=== PATIENT | male | born 1955 | race Caucasian/White ===

== ENCOUNTER 2024-04-06 09:05 | Day surgery (SDC) | payer MEDICARE, MEDICAID ==
[2024-04-06] VITALS (8 sets, daily range): BP systolic 110–153; BP diastolic 52–81; PULSE 43–62; RESP 12–20; TEMP 98.3; O2SAT 95–97
[~2024-04-06] VITALS: Ht 185.4 cm; Wt 89.1 kg
[2024-04-06] MEDS ORDERED: MULT-1085 PO (09:36)
[2024-04-06] MEDS ORDERED: LIONS MANE MUSHROOM PO (09:36)
[2024-04-06] MEDS ORDERED: CHOL100046 PO (09:36)
[2024-04-06] MEDS ORDERED: LATA2.5D14 EACHEYE (09:36)
[2024-04-06] MEDS ORDERED: ACYC-126 PO (09:36)
[2024-04-06] MEDS ORDERED: BICT1TAB PO (09:36)
[2024-04-06] MEDS ORDERED: BRIM10DR3 RIGHTEYE (09:36)
[2024-04-06 10:08] LABS: BASOPHILS % (AUTO) 0.4 % (0-1); EOSINOPHILS % (AUTO) 0.4 % (0-6); HEMATOCRIT 49.8 % (42.0-52.0); HEMOGLOBIN 16.8 g/dl (14.0-17.9); LYMPHOCYTES # (AUTO) 2.8 X10'3 (1.1-4.8); LYMPHOCYTES % (AUTO) 38.3 % (21-51); MEAN CORPUSCULAR HEMOGLOBIN 35.1 PG (27.0-31.0); MEAN CORPUSCULAR HGB CONC 33.7 g/dL (33.0-36.5); MEAN CORPUSCULAR VOLUME 104.3 FL (78-98); MEAN PLATELET VOLUME 7.7 FL (7.4-10.4); MONOCYTES # (AUTO) 0.6 X10'3 (0-0.9); MONOCYTES % (AUTO) 8.1 % (2-12); NEUTROPHILS # (AUTO) 3.9 X10'3 (1.8-7.7); NEUTROPHILS % (AUTO) 52.8 % (42-75); PLATELET COUNT 246 X10'3 (140-440); RED BLOOD COUNT 4.77 X10'6 (4.70-6.10); RED CELL DISTRIBUTION WIDTH 12.9 % (11.5-14.5); WHITE BLOOD COUNT 7.4 X10'3 (4.5-11.0)
[2024-04-06] MEDS: LORazepam 0.5 MG tablet PO PRN (10:30)
[2024-04-06] MEDS: diphenhydrAMINE 25mg capsule PO PRN (10:30)
[2024-04-06 10:31] LABS: APTT 26 SECONDS (22-32); PROTHROMBIN TIME 10.6 SECONDS (9.0-12.0)
[2024-04-06] MEDS: LIDOcaine 1% (10mg/ml) 2ml vial ONE (10:31)
[2024-04-06] MEDS: normal saline 1,000 ML IV SCH (10:31)
[2024-04-06 10:33] LABS: ALBUMIN 4.7 G/DL (3.4-5.0); ANION GAP 10 (8-16); BLOOD UREA NITROGEN 16 MG/DL (7-18); BUN/CREATININE RATIO 12.3 (10.0-20.0); CALCIUM 9.7 MG/DL (8.5-10.1); CHLORIDE 102 MMOL/L (99-107); CHOL/HDL RATIO 4.2 (0.00-4.99); CHOLESTEROL 222 MG/DL (0-200); GLUCOSE 111 MG/DL (70-104); HDL CHOLESTEROL 53 MG/DL (35-60); LDL CHOLESTEROL 148 MG/DL (50-100); SODIUM 137 MMOL/L (135-145); TOTAL CARBON DIOXIDE 25.5 MMOL/L (24-32); TRIGLYCERIDES 104 MG/DL (20-135); eCRCL 63 ML/MIN; eGFR 55 ML/MIN
[2024-04-06] MEDS ORDERED: midazolam 1 mg/ML 2ml injection ONE ×2 (11:34→12:45)
[2024-04-06] MEDS ORDERED: verapamil 2.5 mg/ml inj IV ONE (11:34)
[2024-04-06] MEDS ORDERED: LIDOcaine 1% (10mg/ml) 2ml vial ONE (11:34)
[2024-04-06] MEDS ORDERED: heparin 1,000unit/ml 10ml vial 10 ML ONE (11:35)
[2024-04-06] MEDS ORDERED: iohexol 350MG/ML 100ml bottle IV ONE (11:35)
[2024-04-06] MEDS ORDERED: fentaNYL/PF 50MCG/1 ML 2ML syringe ONE (11:35)
[2024-04-06] MEDS ORDERED: nitroGLYCERIN 500mcg/5mL D5W 5 ML IV ONE (11:39)
[2024-04-06] MEDS ORDERED: HYDROcodone/acetaminophen 10/325mg tab PO PRN (13:50)
[2024-04-06] MEDS ORDERED: HYDROcodone/acetaminophen 5mg/325mg tablet PO PRN (13:50)
[2024-04-07 06:12] LABS: ISTAT HGB MIX 13.9 g/dl (14.0-17.9); ISTAT Hct MIX 41 %PCV (42-52); ISTAT O2 SATURATION MIX VENOUS 69 % (60-80); ISTAT SOURCE BLNK
[2024-04-07 06:13] LABS: ISTAT HGB ART 13.6 g/dl (14.0-17.9); ISTAT Hct ART 40 %PCV (42-52); ISTAT O2 SATURATION ARTERIAL 95 % (95-98); ISTAT SOURCE BLNK
== END 2024-04-06 15:30 | disposition home or self-care (01) ==
LOC: SSTAY O 09:05
PROVIDERS: ATTEND Student in an Organized Health Care Education/Training Program
DX: I35.0 Nonrheumatic aortic (valve) stenosis (principal); I25.10 Atherosclerotic heart disease of native coronary artery without angina pectoris; I10 Essential (primary) hypertension; E78.5 Hyperlipidemia, unspecified; B20 Human immunodeficiency virus [HIV] disease; Z85.048 Personal history of other malignant neoplasm of rectum, rectosigmoid junction, and anus; Z79.899 Other long term (current) drug therapy
CPT/HCPCS: 36415; 80048; 80061; 82803; 85014; 85025; 85610; 85730; 93005; 93456; 99152; A6258; A6402; C1751; C1894; J1644; J2001; J2250; J3010; J3490; J7030; Q0163; Q9967; Z7610; 93460

== ENCOUNTER 2024-06-16 05:33 | Inpatient (IN) | payer MEDICARE, MEDICAID ==
[2024-06-09 13:56] VITALS: PULSE 57; RESP 15; O2SAT 96
[2024-06-09 14:21] LABS: BILIRUBIN,URINE NEGATIVE (Neg); CLARITY,URINE CLEAR (Clear); COLOR,URINE YELLOW (Yellow); GLUCOSE, URINE 100 mg/dl (Neg); KETONES,URINE NEGATIVE (Neg); LEUKOCYTE ESTERASE ,URINE NEGATIVE (Neg); NITRITES, URINE NEGATIVE (Neg); OCCULT BLOOD,URINE NEGATIVE (Neg); PROTEIN,URINE TRACE mg/dl (Neg); UROBILINOGEN,URINE 0.2 E.U/dL (0.2-1.0)
[2024-06-09 14:23] LABS: BASOPHILS % (AUTO) 0.4 % (0-1); EOSINOPHILS % (AUTO) 0.5 % (0-6); LYMPHOCYTES % (AUTO) 38.3 % (21-51); MEAN CORPUSCULAR HEMOGLOBIN 34.9 PG (27.0-31.0); MEAN CORPUSCULAR HGB CONC 33.3 g/dL (33.0-36.5); MEAN CORPUSCULAR VOLUME 104.8 FL (78-98); MEAN PLATELET VOLUME 7.6 FL (7.4-10.4); MONOCYTES # (AUTO) 0.7 X10'3 (0-0.9); MONOCYTES % (AUTO) 8.4 % (2-12); NEUTROPHILS # (AUTO) 4.1 X10'3 (1.8-7.7); NEUTROPHILS % (AUTO) 52.4 % (42-75); PRE OP HEMATOCRIT 45.8 % (42.0-52.0); PRE OP HEMOGLOBIN 15.3 g/dL (14.0-17.9); PRE OP PLATELET COUNT 209 X10'3 (140-440); PRE OP WHITE BLOOD COUNT 7.8 10'3 (4.8-10.8); RED BLOOD COUNT 4.37 X10'6 (4.70-6.10); RED CELL DISTRIBUTION WIDTH 13.2 % (11.5-14.5)
[2024-06-09 14:31] LABS: UA COLLECTION TYPE CLN CATCH MIDSTREAM
[2024-06-09 14:35] LABS: ALBUMIN 3.9 G/DL (3.4-5.0); ALBUMIN/GLOBULIN RATIO 1.2 (1.1-1.5); ALKALINE PHOSPHATASE 59 IU/L (46-116); BLOOD UREA NITROGEN 12 MG/DL (7-18); CALCIUM 8.7 MG/DL (8.5-10.1); CHLORIDE 105 MMOL/L (99-107); CREATININE 1.33 MG/DL (0.60-1.10); PRE OP ALT 23 U/L (30-65); PRE OP ANION GAP 9 (8-16); PRE OP AST 19 U/L (10-37); PRE OP BILIRUB, TOTAL 0.7 MG/DL (0.0-1.0); PRE OP GLUCOSE 112 MG/DL (70-104); PRE OP POTASSIUM 3.9 MMOL/L (3.4-5.1); PRE OP SODIUM 140 MMOL/L (135-145); TOTAL CARBON DIOXIDE 25.9 MMOL/L (24-32); TOTAL PROTEIN 7.1 G/DL (6.4-8.2); eGFR 54 ML/MIN
[2024-06-09 14:38] LABS: BACTERIA,URINE NONE SEEN /HPF (Neg); MUCUS STRANDS FEW /LPF (Neg); SQUAMOUS EPITHELIAL CELL,UR NONE SEEN /LPF (FEW); WBC,URINE 0-4 /HPF (0-4)
[2024-06-09 14:46] LABS: ABG BASE EXCESS -1.1 mmol/L (-2.0-3.0); ABG HCO3 21.5 mmol/L (21.0-28.0); ABG OXYGEN SATURATION 97.8 % (94.0-98.0); ABG PCO2 (T) 30.9 mmHg (35.0-48.0); ABG PO2 (T) 99.4 mmHg (83.0-108.0); ALLEN'S TEST POSITIVE; FCOHb 1.3 % (0.5-1.5); FHHb 2.2 % (0.0-5.0); FMetHb 0.3 % (0.0-1.5); FO2Hb 96.2 % (94.0-98.0); MODE ROOM AIR; TOTAL HEMOGLOBIN 16.1 G/dl (13.5-17.5)
[2024-06-09 14:53] LABS: PRE OP PROTIME 10.8 SECONDS (9.0-12.0)
[2024-06-09 15:09] LABS: HEMOGLOBIN A1C 5.4 % (4.5-6.2)
[2024-06-16] VITALS (30 sets, daily range): BP systolic 98–201; BP diastolic 46–105; PULSE 55–88; RESP 8–22; TEMP 98.3; O2SAT 95–98
[~2024-06-16] VITALS: Ht 185.4 cm; Wt 91.5 kg
[2024-06-16] MEDS: Insulin Reg/NS 100units/100mL 100 ML IV SCH ×2 (05:30→10:20)
[2024-06-16] MEDS: ringers solution, lacted 1,000 ML IV SCH (05:30)
[~2024-06-16 05:33] MED LIST: ACYC-126 PO; BICT1TAB PO; BRIM10DR3 EACHEYE; LATA2.5D14 EACHEYE; [UNRECOGNIZED DRUG - CODE] PO; dextrose 50%-water 50ml dispensing syringe IV PRN
[2024-06-16] MEDS: cefazolin 2gm/D5W 100mL 100 ML IV ONE (05:38)
[2024-06-16] MEDS: vancomycin 1,500 MG in NS 300ml IV soln IV ONE (06:39)
[2024-06-16] MEDS: mupirocin 2% nasal ointment 1gm UD NS ONE (06:39)
[2024-06-16] MEDS: famotidine 20mg tablet PO ONE (06:39)
[2024-06-16] MEDS: metoprolol tartrate 12.5mg (1/2 tablet) PO ONE (06:39)
[2024-06-16] MEDS: ceFAZolin 1000mg inj ONE (06:46)
[2024-06-16] MEDS: vancomycin 1,000mg inj ONE (06:46)
[2024-06-16] MEDS: epiNEPHrine 1 mg/ml inj ONE (06:46)
[2024-06-16] MEDS: NORepinephrine 8mg/ 250ml NS 250 ML IV ONE (07:05)
[2024-06-16] MEDS ORDERED: isoflurane 100ml inhalation liquid IH ONE (07:41)
[2024-06-16] MEDS: LORazepam 2 mg/ml vial IV ONE (07:47)
[2024-06-16] MEDS ORDERED: MIDAZolam 1 MG/ML 5ML VIAL ONE (07:51)
[2024-06-16] MEDS ORDERED: SUfentanil 50mcg/ml 1ml amp IV ONE (07:51)
[2024-06-16 08:28] LABS: ABG BASE EXCESS -4.4 mmol/L (-2.0-3.0); ABG HCO3 20.8 mmol/L (21.0-28.0); ABG OXYGEN SATURATION 98.9 % (94.0-98.0); ABG PH 7.345 (7.350-7.450); CL (ABG) 105 mmol/L (98-107); FCOHb 0.3 % (0.5-1.5); FHHb 1.1 % (0.0-5.0); FMetHb 0.3 % (0.0-1.5); FO2Hb 98.3 % (94.0-98.0); GLUCOSE (ABG) 103 mg/dl (65-95); TOTAL HEMOGLOBIN 14.3 G/dl (13.5-17.5)
[2024-06-16] MEDS: vancomycin 1,000mg inj IVT ONE (08:38)
[2024-06-16] MEDS ORDERED: LIDOcaine 2% (20mg/ml) 5ml vial ONE (08:52)
[2024-06-16] MEDS ORDERED: phenylephrine 10mg/ml inj. -priapism dosing ONE (08:52)
[2024-06-16] MEDS ORDERED: rocuronium 10mg/ml inj IV ONE ×3 (08:52)
[2024-06-16] MEDS ORDERED: 0.9 % SODIUM CHLORIDE 10 ML VIAL ONE (08:52)
[2024-06-16] MEDS ORDERED: propofol inj 20 ML IV ONE (08:52)
[2024-06-16 08:59] LABS: ABG BASE EXCESS VENOUS -3.1 mmol/L (-2.0-3.0); ABG HCO3 VENOUS 23.2 mmol/L (22.0-29.0); ABG OXYGEN SATURATION VENOUS 79.7 % (60.0-85.0); ABG PCO2 VENOUS 47.1 mmHg (38.0-54.0); ABG PH (VENOUS) 7.311 (7.320-7.430); ABG PO2 VENOUS 48.3 mmHg (23.0-48.0); CL (ABG) 103 mmol/L (98-107); FCOHb VENOUS 0.3 % (0.5-1.5); FHHb VENOUS 20.2 %; FMetHb VENOUS 0.3 % (0.5-1.5); FO2Hb VENOUS 79.2 % (0-80.0); GLUCOSE (ABG) 113 mg/dl (65-95); K (ABG) 4.5 mmol/L (3.40-4.50); TOTAL HEMOGLOBIN 11.4 G/dl (13.5-17.5)
[2024-06-16 09:04] LABS: ABG BASE EXCESS -2.5 mmol/L (-2.0-3.0); ABG HCO3 23.6 mmol/L (21.0-28.0); ABG OXYGEN SATURATION 99.1 % (94.0-98.0); ABG PCO2 45.7 mmHg (35.0-48.0); CL (ABG) 104 mmol/L (98-107); FCOHb 0.3 % (0.5-1.5); FHHb 0.9 % (0.0-5.0); FMetHb 0.3 % (0.0-1.5); FO2Hb 98.5 % (94.0-98.0); GLUCOSE (ABG) 114 mg/dl (65-95); IONIZED CA (ABG) 1.03 mmol/L (1.15-1.33); K (ABG) 4.6 mmol/L (3.40-4.50); TOTAL HEMOGLOBIN 11.5 G/dl (13.5-17.5)
[2024-06-16] MEDS ORDERED: FENTANYL-0.9 % NACL/PF 100 ML IV SCH (09:05)
[2024-06-16] MEDS ORDERED: fentaNYL/PF 50MCG/1 ML 2ML syringe IV PRN (09:05)
[2024-06-16] MEDS ORDERED: midazolam 1 mg/ML 2ml injection IV ONE (09:05)
[2024-06-16] MEDS ORDERED: midazolam 100mg in NS 100ml 100 ML IV SCH (09:05)
[2024-06-16 09:27] LABS: ABG BASE EXCESS 0.5 mmol/L (-2.0-3.0); ABG HCO3 25.9 mmol/L (21.0-28.0); ABG OXYGEN SATURATION 98.8 % (94.0-98.0); ABG PCO2 44.9 mmHg (35.0-48.0); ABG PH 7.379 (7.350-7.450); ABG PO2 250.8 mmHg (83.0-108.0); CL (ABG) 102 mmol/L (98-107); FCOHb 0.3 % (0.5-1.5); FHHb 1.2 % (0.0-5.0); FMetHb 0.3 % (0.0-1.5); FO2Hb 98.2 % (94.0-98.0); GLUCOSE (ABG) 132 mg/dl (65-95); IONIZED CA (ABG) 0.99 mmol/L (1.15-1.33); K (ABG) 4.5 mmol/L (3.40-4.50); TOTAL HEMOGLOBIN 11.3 G/dl (13.5-17.5)
[2024-06-16 09:47] LABS: ABG BASE EXCESS -1.8 mmol/L (-2.0-3.0); ABG HCO3 22.8 mmol/L (21.0-28.0); ABG PCO2 38.5 mmHg (35.0-48.0); ABG PH 7.391 (7.350-7.450); CL (ABG) 106 mmol/L (98-107); GLUCOSE (ABG) 132 mg/dl (65-95); IONIZED CA (ABG) 1.22 mmol/L (1.15-1.33); K (ABG) 4.3 mmol/L (3.40-4.50)
[2024-06-16 09:49] LABS: ABG BASE EXCESS -3.7 mmol/L (-2.0-3.0); ABG HCO3 20.5 mmol/L (21.0-28.0); ABG OXYGEN SATURATION 99.1 % (94.0-98.0); ABG PCO2 33.9 mmHg (35.0-48.0); ABG PH 7.399 (7.350-7.450); CL (ABG) 106 mmol/L (98-107); FCOHb 0.2 % (0.5-1.5); FHHb 0.9 % (0.0-5.0); FMetHb 0.3 % (0.0-1.5); FO2Hb 98.6 % (94.0-98.0); GLUCOSE (ABG) 124 mg/dl (65-95); IONIZED CA (ABG) 1.25 mmol/L (1.15-1.33); K (ABG) 4.3 mmol/L (3.40-4.50); TOTAL HEMOGLOBIN 11.3 G/dl (13.5-17.5)
[2024-06-16 09:49] LABS: ACTIVATED CLOTTING TIME 114 SEC (101-148)
[2024-06-16] MEDS ORDERED: albumin (Human) 5% 250ml 250 ML IV ONE (09:52)
[2024-06-16] MEDS ORDERED: dexamethasone sod phosphate 4mg/ml inj. ONE (09:58)
[2024-06-16] MEDS ORDERED: ondansetron/PF 4mg/2ml inj ONE (09:58)
[2024-06-16] MEDS ORDERED: magnesium hydroxide 30ml (MOM) UD suspension PO PRN (10:00)
[2024-06-16] MEDS ORDERED: insulin glargine (Lantus) pen - multi-dose SQ PRN (10:00)
[2024-06-16] MEDS ORDERED: bisacodyl 10mg suppository rectal RC PRN (10:00)
[2024-06-16] MEDS ORDERED: acetaminophen 325mg tablet PO PRN ×2 (10:00)
[2024-06-16] MEDS ORDERED: sodium phosphate inj. 15 MMOL in dextrose 5%-water 250 ML IV PRN (10:00)
[2024-06-16] MEDS ORDERED: potassium Cl 40MEQ/1/2NS 520ml 520 ML IV PRN (10:00)
[2024-06-16] MEDS ORDERED: metoclopramide 5 mg/ml inj IV PRN (10:00)
[2024-06-16] MEDS ORDERED: potassium CL 10mEq/100ml bag 100 ML IV PRN (10:00)
[2024-06-16] MEDS ORDERED: sodium phosphate inj. 30 MMOL in dextrose 5%-water 250 ML IV PRN (10:00)
[2024-06-16] MEDS ORDERED: potassium Cl 40MEQ/270ML bag 250 ML IV PRN (10:00)
[2024-06-16] MEDS ORDERED: mineral oil 133ml enema RC PRN (10:00)
[2024-06-16] MEDS ORDERED: dextrose 50%-water 50ml dispensing syringe IV PRN (10:00)
[2024-06-16] MEDS ORDERED: nitroGLYCERIN-Tridil 50MG/D5W 250 ML IV PRN (10:00)
[2024-06-16 10:32] LABS: ABG BASE EXCESS -2.1 mmol/L (-2.0-3.0); ABG HCO3 22.4 mmol/L (21.0-28.0); ABG OXYGEN SATURATION 98.2 % (94.0-98.0); ABG PCO2 (T) 36.4 mmHg (35.0-48.0); ABG PH (T) 7.404 (7.350-7.450); FCOHb 0.5 % (0.5-1.5); FHHb 1.8 % (0.0-5.0); FMetHb 0.3 % (0.0-1.5); FO2Hb 97.4 % (94.0-98.0); MODE VENT - SIMV; PATIENT TEMPERATURE 36.2; PEEP 5 cm H2O; RESPIRATORY RATE 12 b/min; TIDAL VOLUME 600 mL; TOTAL HEMOGLOBIN 13.6 G/dl (13.5-17.5)
[2024-06-16] MEDS: niCARDipine-NS 40mg/200ml IVPB 200 ML IV PRN (10:46)
[2024-06-16 10:48] LABS: ACT @ 1.70 U 251 SEC (193-297); ACT @ 2.84 U 353 SEC (260-420); BASELINE ACT 130 SEC (101-148); PATIENT WEIGHT 93.0k KG
[2024-06-16] MEDS: morphine 4 MG/ML inj SYRINge IV PRN (10:48)
[2024-06-16 10:50] LABS: BASOPHILS % (AUTO) 0.3 % (0-1); EOSINOPHILS # (AUTO) 0.1 X10'3 (0-0.9); EOSINOPHILS % (AUTO) 0.9 % (0-6); HEMATOCRIT 38.3 % (42.0-52.0); HEMOGLOBIN 13.1 g/dl (14.0-17.9); LYMPHOCYTES # (AUTO) 1.2 X10'3 (1.1-4.8); LYMPHOCYTES % (AUTO) 13.6 % (21-51); MEAN CORPUSCULAR HEMOGLOBIN 35.6 PG (27.0-31.0); MEAN CORPUSCULAR HGB CONC 34.3 g/dL (33.0-36.5); MEAN CORPUSCULAR VOLUME 103.7 FL (78-98); MEAN PLATELET VOLUME 7.6 FL (7.4-10.4); MONOCYTES # (AUTO) 0.6 X10'3 (0-0.9); MONOCYTES % (AUTO) 6.8 % (2-12); NEUTROPHILS % (AUTO) 78.4 % (42-75); PLATELET COUNT 117 X10'3 (140-440); RED BLOOD COUNT 3.69 X10'6 (4.70-6.10); RED CELL DISTRIBUTION WIDTH 13.2 % (11.5-14.5)
[2024-06-16 11:00] LABS: ALANINE AMINOTRANSFERASE 14 U/L (12-78); ALBUMIN 3.2 G/DL (3.4-5.0); ALBUMIN/GLOBULIN RATIO 1.6 (1.1-1.5); ALKALINE PHOSPHATASE 39 IU/L (46-116); ANION GAP 5 (8-16); APTT 26 SECONDS (22-32); ASPARTATE AMINO TRANSFERASE 20 U/L (10-37); BILIRUBIN,TOTAL 0.6 MG/DL (0.1-1.0); BLOOD UREA NITROGEN 19 MG/DL (7-18); BUN/CREATININE RATIO 18.6 (10.0-20.0); CALCIUM 8.2 MG/DL (8.5-10.1); CHLORIDE 109 MMOL/L (99-107); CREATININE 1.02 MG/DL (0.60-1.10); GLUCOSE 122 MG/DL (70-104); INR 1.1 INR; MAGNESIUM 2.7 MG/DL (1.5-2.4); PHOSPHORUS 2.9 MG/DL (2.3-4.5); POTASSIUM 4.4 MMOL/L (3.5-5.1); PROTHROMBIN TIME 11.9 SECONDS (9.0-12.0); SODIUM 141 MMOL/L (135-145); TOTAL CARBON DIOXIDE 27.3 MMOL/L (24-32); TOTAL PROTEIN 5.2 G/DL (6.4-8.2); eCRCL 81 ML/MIN; eGFR 73 ML/MIN
[2024-06-16] MEDS: sodium chloride 0.45% 1,000 ML IV SCH (11:00)
[2024-06-16] MEDS: potassium Cl 20mEq/100mL bag 100 ML IV PRN (11:13)
[2024-06-16 12:27] LABS: ABG BASE EXCESS -4.5 mmol/L (-2.0-3.0); ABG HCO3 21.8 mmol/L (21.0-28.0); ABG OXYGEN SATURATION 97.3 % (94.0-98.0); ABG PCO2 (T) 42.8 mmHg (35.0-48.0); ABG PO2 (T) 100.7 mmHg (83.0-108.0); FCOHb 0.8 % (0.5-1.5); FHHb 2.7 % (0.0-5.0); FMetHb 0.3 % (0.0-1.5); FO2Hb 96.2 % (94.0-98.0); MODE VENT - CPAP; PATIENT TEMPERATURE 36.2; PEEP 5 cm H2O; TOTAL HEMOGLOBIN 14.3 G/dl (13.5-17.5)
[2024-06-16] MEDS: albumin (Human) 5% 250ml 250 ML IV PRN (13:33)
[2024-06-16] MEDS: HYDROcodone/acetaminophen 10/325mg tab PO PRN ×2 (15:00→21:01)
[2024-06-16] MEDS: morphine 2 MG/ML inj. syringe IV PRN (16:15)
[2024-06-16] MEDS: ceFAZolin/D5W- 1GM premix 50 ML IV SCH (16:15)
[2024-06-16] MEDS: ondansetron/PF 4mg/2ml inj IV PRN (18:55)
[2024-06-16] MEDS: ketorolac trometh 15mg/ml vial 15 MG/ML ML IV PRN (18:59)
[2024-06-16 19:03] LABS: ALBUMIN 3.8 G/DL (3.4-5.0); ANION GAP 8 (8-16); BASOPHILS % (AUTO) 0 % (0-1); BLOOD UREA NITROGEN 17 MG/DL (7-18); BUN/CREATININE RATIO 17.7 (10.0-20.0); CALCIUM 8.2 MG/DL (8.5-10.1); CHLORIDE 108 MMOL/L (99-107); CREATININE 0.96 MG/DL (0.60-1.10); EOSINOPHILS % (AUTO) 0 % (0-6); GLUCOSE 160 MG/DL (70-104); HEMATOCRIT 40.1 % (42.0-52.0); HEMOGLOBIN 13.5 g/dl (14.0-17.9); LYMPHOCYTES # (AUTO) 0.4 X10'3 (1.1-4.8); LYMPHOCYTES % (AUTO) 2.7 % (21-51); MAGNESIUM 2.1 MG/DL (1.5-2.4); MEAN CORPUSCULAR HEMOGLOBIN 35.2 PG (27.0-31.0); MEAN CORPUSCULAR HGB CONC 33.8 g/dL (33.0-36.5); MEAN CORPUSCULAR VOLUME 104.2 FL (78-98); MEAN PLATELET VOLUME 8.4 FL (7.4-10.4); MONOCYTES # (AUTO) 0.6 X10'3 (0-0.9); MONOCYTES % (AUTO) 4.6 % (2-12); NEUTROPHILS # (AUTO) 11.9 X10'3 (1.8-7.7); NEUTROPHILS % (AUTO) 92.7 % (42-75); PLATELET COUNT 148 X10'3 (140-440); RED BLOOD COUNT 3.85 X10'6 (4.70-6.10); SODIUM 140 MMOL/L (135-145); TOTAL CARBON DIOXIDE 24.1 MMOL/L (24-32); WHITE BLOOD COUNT 12.8 X10'3 (4.5-11.0); eCRCL 86 ML/MIN; eGFR 78 ML/MIN
[2024-06-16 19:05] LABS: POTASSIUM 4.8 MMOL/L (3.5-5.1)
[2024-06-16] MEDS: magnesium sulf-water 2g/50mL 50 ML IV PRN (19:45)
[2024-06-16] MEDS: sennosides/docusate sodium tablet PO SCH (20:00)
[2024-06-16] MEDS: brimonidine 0.2% 5 ML ophthalmic drops EACHEYE SCH (20:03)
[2024-06-16] MEDS: acyclovir 200 MG capsule PO SCH (20:44)
[2024-06-16] MEDS: mupirocin 2% nasal ointment 1gm UD NS SCH (20:44)
[2024-06-16] MEDS: vancomycin/NS 1 GM ADD-VANTAGE 250 ML IV SCH (20:44)
[2024-06-16] MEDS: atorvastatin 10mg tablet PO SCH (20:45)
[2024-06-16] MEDS: latanoprost 0.005% 2.5ml ophthalmic drops EACHEYE SCH (21:00)
[2024-06-17] VITALS (24 sets, daily range): BP systolic 113–159; BP diastolic 52–85; PULSE 56–81; RESP 14–26; O2SAT 92–98
[2024-06-17 04:27] LABS: BASOPHILS % (AUTO) 0.2 % (0-1); EOSINOPHILS % (AUTO) 0 % (0-6); HEMATOCRIT 35.5 % (42.0-52.0); LYMPHOCYTES # (AUTO) 0.9 X10'3 (1.1-4.8); LYMPHOCYTES % (AUTO) 6.9 % (21-51); MEAN CORPUSCULAR HGB CONC 33.8 g/dL (33.0-36.5); MEAN CORPUSCULAR VOLUME 103.7 FL (78-98); MEAN PLATELET VOLUME 7.9 FL (7.4-10.4); MONOCYTES # (AUTO) 1.6 X10'3 (0-0.9); MONOCYTES % (AUTO) 12.1 % (2-12); NEUTROPHILS # (AUTO) 10.6 X10'3 (1.8-7.7); NEUTROPHILS % (AUTO) 80.8 % (42-75); PLATELET COUNT 101 X10'3 (140-440); RED BLOOD COUNT 3.42 X10'6 (4.70-6.10); WHITE BLOOD COUNT 13.2 X10'3 (4.5-11.0)
[2024-06-17 04:42] LABS: ALANINE AMINOTRANSFERASE 11 U/L (12-78); ALBUMIN 3.5 G/DL (3.4-5.0); ALBUMIN/GLOBULIN RATIO 1.8 (1.1-1.5); ALKALINE PHOSPHATASE 33 IU/L (46-116); ANION GAP 4 (8-16); ASPARTATE AMINO TRANSFERASE 22 U/L (10-37); BILIRUBIN,TOTAL 0.7 MG/DL (0.1-1.0); BLOOD UREA NITROGEN 18 MG/DL (7-18); BUN/CREATININE RATIO 14.6 (10.0-20.0); CALCIUM 7.4 MG/DL (8.5-10.1); CHLORIDE 106 MMOL/L (99-107); CREATININE 1.23 MG/DL (0.60-1.10); GLUCOSE 139 MG/DL (70-104); MAGNESIUM 1.9 MG/DL (1.5-2.4); PHOSPHORUS 3.8 MG/DL (2.3-4.5); POTASSIUM 4.4 MMOL/L (3.5-5.1); SODIUM 137 MMOL/L (135-145); TOTAL CARBON DIOXIDE 27.1 MMOL/L (24-32); TOTAL PROTEIN 5.5 G/DL (6.4-8.2); eCRCL 67 ML/MIN; eGFR 59 ML/MIN
[2024-06-17] MEDS: magnesium sulf-water 4G/100mL 100 ML IV PRN (05:15)
[2024-06-17] MEDS: BIKTARVY PO SCH (07:34)
[2024-06-17] MEDS: aspirin 81mg tab.chew PO SCH (07:34)
[2024-06-17] MEDS: metoprolol tartrate 12.5mg (1/2 tablet) PO SCH (07:36)
[2024-06-17] MEDS: heparin, porcine 5000 units/ml vial SQ SCH (08:48)
[2024-06-17] MEDS ORDERED: mineral oil/petrolatum ophthal oint EACHEYE SCH (14:00)
[2024-06-18] VITALS (25 sets, daily range): BP systolic 104–155; BP diastolic 55–99; PULSE 65–143; RESP 15–29; TEMP 97.1–98.2; O2SAT 92–98
[2024-06-18 03:52] LABS: BASOPHILS # (AUTO) 0.1 X10'3 (0-0.2); BASOPHILS % (AUTO) 0.5 % (0-1); EOSINOPHILS % (AUTO) 0 % (0-6); HEMATOCRIT 36.2 % (42.0-52.0); HEMOGLOBIN 12.3 g/dl (14.0-17.9); LYMPHOCYTES # (AUTO) 1.6 X10'3 (1.1-4.8); LYMPHOCYTES % (AUTO) 11.6 % (21-51); MEAN CORPUSCULAR HEMOGLOBIN 35.3 PG (27.0-31.0); MEAN CORPUSCULAR HGB CONC 33.9 g/dL (33.0-36.5); MEAN PLATELET VOLUME 8.2 FL (7.4-10.4); MONOCYTES # (AUTO) 1.7 X10'3 (0-0.9); NEUTROPHILS # (AUTO) 10.7 X10'3 (1.8-7.7); NEUTROPHILS % (AUTO) 75.9 % (42-75); PLATELET COUNT 114 X10'3 (140-440); RED BLOOD COUNT 3.48 X10'6 (4.70-6.10); RED CELL DISTRIBUTION WIDTH 13.4 % (11.5-14.5); WHITE BLOOD COUNT 14.1 X10'3 (4.5-11.0)
[2024-06-18 04:00] LABS: ALBUMIN 3.3 G/DL (3.4-5.0); ANION GAP 6 (8-16); BLOOD UREA NITROGEN 19 MG/DL (7-18); BUN/CREATININE RATIO 17.1 (10.0-20.0); CHLORIDE 105 MMOL/L (99-107); CREATININE 1.11 MG/DL (0.60-1.10); GLUCOSE 121 MG/DL (70-104); MAGNESIUM 2.1 MG/DL (1.5-2.4); PHOSPHORUS 2.2 MG/DL (2.3-4.5); POTASSIUM 4.2 MMOL/L (3.5-5.1); SODIUM 137 MMOL/L (135-145); TOTAL CARBON DIOXIDE 25.8 MMOL/L (24-32); eCRCL 74 ML/MIN; eGFR 66 ML/MIN
[2024-06-18] MEDS: Neutra Phos packet PO PRN (06:03)
[2024-06-18] MEDS: potassium Cl 20 mEq SR tablet PO PRN (06:03)
[2024-06-18] MEDS: pantoprazole 40mg Tablet.DR PO SCH (07:22)
[2024-06-18] MEDS ORDERED: magnesium sulf-water 2g/50mL 50 ML IV PRN (07:45)
[2024-06-18] MEDS ORDERED: magnesium sulf-water 4G/100mL 100 ML IV PRN (07:45)
[2024-06-18] MEDS ORDERED: potassium Cl 20mEq/100mL bag 100 ML IV PRN (07:45)
[2024-06-18] MEDS ORDERED: potassium Cl 40MEQ/1/2NS 520ml 520 ML IV PRN (07:45)
[2024-06-18] MEDS ORDERED: potassium Cl 20 mEq SR tablet PO PRN ×2 (07:45)
[2024-06-18] MEDS ORDERED: potassium CL 10mEq/100ml bag 100 ML IV PRN (07:45)
[2024-06-18] MEDS ORDERED: potassium Cl 40MEQ/270ML bag 250 ML IV PRN (07:45)
[2024-06-18] MEDS ORDERED: LOP12.5T PO (12:06)
[2024-06-18] MEDS ORDERED: ASPI81TA53 PO (12:06)
[2024-06-18] MEDS ORDERED: ATOR10TA PO (12:06)
[2024-06-18] MEDS ORDERED: HYDR-3972 PO (12:06)
[2024-06-18] MEDS: amiodarone 150mg/dext, iso-os 100 ML IV ONE (13:03)
[2024-06-18] MEDS ORDERED: AMIO200T67 PO (13:05)
[2024-06-18] MEDS: magnesium Cl slow-release 64mg tablet PO SCH (13:14)
[2024-06-18] MEDS: furosemide 20 MG/2 ML vial IV ONE (13:14)
[2024-06-18] MEDS: amiodarone/D5 360MG/200ML BAG 200 ML IV SCH (13:17)
[2024-06-18] MEDS: JUVEN Shake w/Arg/Glut/Ca2+Bmb (Juven 19.3gm) pkt 240ml PO SCH (13:32)
[2024-06-19] VITALS (21 sets, daily range): BP systolic 95–146; BP diastolic 59–93; PULSE 62–101; RESP 14–26; TEMP 96.2–98.8; O2SAT 91–97
[2024-06-19 08:08] LABS: BASOPHILS % (AUTO) 0.3 % (0-1); EOSINOPHILS % (AUTO) 0.1 % (0-6); HEMATOCRIT 36.7 % (42.0-52.0); HEMOGLOBIN 12.2 g/dl (14.0-17.9); LYMPHOCYTES # (AUTO) 2.3 X10'3 (1.1-4.8); LYMPHOCYTES % (AUTO) 17.6 % (21-51); MEAN CORPUSCULAR HEMOGLOBIN 34.5 PG (27.0-31.0); MEAN CORPUSCULAR HGB CONC 33.4 g/dL (33.0-36.5); MEAN CORPUSCULAR VOLUME 103.5 FL (78-98); MEAN PLATELET VOLUME 8.5 FL (7.4-10.4); MONOCYTES # (AUTO) 1.6 X10'3 (0-0.9); MONOCYTES % (AUTO) 12.6 % (2-12); NEUTROPHILS % (AUTO) 69.4 % (42-75); PLATELET COUNT 134 X10'3 (140-440); RED BLOOD COUNT 3.54 X10'6 (4.70-6.10); RED CELL DISTRIBUTION WIDTH 13.3 % (11.5-14.5); WHITE BLOOD COUNT 12.9 X10'3 (4.5-11.0)
[2024-06-19] MEDS: acyclovir 200 MG capsule PO SCH (08:29)
[2024-06-19 08:46] LABS: ALANINE AMINOTRANSFERASE 23 U/L (12-78); ALBUMIN 3.2 G/DL (3.4-5.0); ALKALINE PHOSPHATASE 52 IU/L (46-116); ANION GAP 8 (8-16); ASPARTATE AMINO TRANSFERASE 29 U/L (10-37); BILIRUBIN,TOTAL 0.7 MG/DL (0.1-1.0); BLOOD UREA NITROGEN 18 MG/DL (7-18); BUN/CREATININE RATIO 18.2 (10.0-20.0); CALCIUM 8.6 MG/DL (8.5-10.1); CHLORIDE 104 MMOL/L (99-107); CREATININE 0.99 MG/DL (0.60-1.10); GLUCOSE 105 MG/DL (70-104); POTASSIUM 4.3 MMOL/L (3.5-5.1); SODIUM 137 MMOL/L (135-145); TOTAL CARBON DIOXIDE 25.2 MMOL/L (24-32); TOTAL PROTEIN 6.4 G/DL (6.4-8.2); eCRCL 83 ML/MIN; eGFR 76 ML/MIN
[2024-06-19] MEDS ORDERED: ondansetron 4mg rapidly disintigrating tab PO PRN (16:25)
[2024-06-19] MEDS: amiodarone 200mg tablet PO SCH (19:57)
[2024-06-20] VITALS (25 sets, daily range): BP systolic 105–143; BP diastolic 56–110; PULSE 66–174; RESP 13–25; TEMP 97.1–98.2; O2SAT 93–98
[2024-06-20 06:58] LABS: BASOPHILS % (AUTO) 0.3 % (0-1); EOSINOPHILS % (AUTO) 0.3 % (0-6); HEMATOCRIT 36.1 % (42.0-52.0); HEMOGLOBIN 12.4 g/dl (14.0-17.9); LYMPHOCYTES # (AUTO) 1.9 X10'3 (1.1-4.8); LYMPHOCYTES % (AUTO) 19.7 % (21-51); MEAN CORPUSCULAR HEMOGLOBIN 35.7 PG (27.0-31.0); MEAN CORPUSCULAR HGB CONC 34.3 g/dL (33.0-36.5); MEAN CORPUSCULAR VOLUME 104.1 FL (78-98); MEAN PLATELET VOLUME 8.1 FL (7.4-10.4); MONOCYTES # (AUTO) 1.2 X10'3 (0-0.9); MONOCYTES % (AUTO) 11.8 % (2-12); NEUTROPHILS # (AUTO) 6.7 X10'3 (1.8-7.7); NEUTROPHILS % (AUTO) 67.9 % (42-75); PLATELET COUNT 176 X10'3 (140-440); RED BLOOD COUNT 3.47 X10'6 (4.70-6.10); RED CELL DISTRIBUTION WIDTH 12.9 % (11.5-14.5); WHITE BLOOD COUNT 9.8 X10'3 (4.5-11.0)
[2024-06-20 07:14] LABS: ANION GAP 7 (8-16); BLOOD UREA NITROGEN 19 MG/DL (7-18); BUN/CREATININE RATIO 17.8 (10.0-20.0); CALCIUM 8.6 MG/DL (8.5-10.1); CHLORIDE 102 MMOL/L (99-107); CREATININE 1.07 MG/DL (0.60-1.10); GLUCOSE 108 MG/DL (70-104); MAGNESIUM 1.9 MG/DL (1.5-2.4); POTASSIUM 4.3 MMOL/L (3.5-5.1); SODIUM 135 MMOL/L (135-145); TOTAL CARBON DIOXIDE 26.2 MMOL/L (24-32); eCRCL 77 ML/MIN; eGFR 69 ML/MIN
[2024-06-20] MEDS: amiodarone 150mg/dext, iso-os 100 ML IV STA (09:17)
[2024-06-20] MEDS: amiodarone/D5 360MG/200ML BAG 200 ML IV SCH (11:19)
[2024-06-20] MEDS ORDERED: magnesium sulf-water 2g/50mL 50 ML IV ONE (14:45)
[2024-06-20] MEDS: magnesium Cl slow-release 64mg tablet PO PRN (17:32)
[2024-06-20] MEDS: metoprolol tartrate 12.5mg (1/2 tablet) PO SCH (19:34)
[2024-06-21] VITALS (21 sets, daily range): BP systolic 95–131; BP diastolic 51–88; PULSE 88–128; RESP 11–24; TEMP 98.2–99.3; O2SAT 94–98
[2024-06-21 06:52] LABS: BASOPHILS # (AUTO) 0.1 X10'3 (0-0.2); BASOPHILS % (AUTO) 0.5 % (0-1); EOSINOPHILS # (AUTO) 0.1 X10'3 (0-0.9); EOSINOPHILS % (AUTO) 0.4 % (0-6); HEMATOCRIT 39.4 % (42.0-52.0); HEMOGLOBIN 13.5 g/dl (14.0-17.9); LYMPHOCYTES # (AUTO) 2.4 X10'3 (1.1-4.8); LYMPHOCYTES % (AUTO) 21.5 % (21-51); MEAN CORPUSCULAR HEMOGLOBIN 35.2 PG (27.0-31.0); MEAN CORPUSCULAR HGB CONC 34.1 g/dL (33.0-36.5); MEAN CORPUSCULAR VOLUME 103.2 FL (78-98); MEAN PLATELET VOLUME 7.7 FL (7.4-10.4); MONOCYTES # (AUTO) 1.5 X10'3 (0-0.9); MONOCYTES % (AUTO) 12.9 % (2-12); NEUTROPHILS # (AUTO) 7.3 X10'3 (1.8-7.7); NEUTROPHILS % (AUTO) 64.7 % (42-75); PLATELET COUNT 221 X10'3 (140-440); RED BLOOD COUNT 3.82 X10'6 (4.70-6.10); RED CELL DISTRIBUTION WIDTH 13.3 % (11.5-14.5); WHITE BLOOD COUNT 11.3 X10'3 (4.5-11.0)
[2024-06-21 07:18] LABS: ALBUMIN 2.9 G/DL (3.4-5.0); ANION GAP 6 (8-16); BLOOD UREA NITROGEN 17 MG/DL (7-18); BUN/CREATININE RATIO 16.7 (10.0-20.0); CALCIUM 8.8 MG/DL (8.5-10.1); CHLORIDE 104 MMOL/L (99-107); CREATININE 1.02 MG/DL (0.60-1.10); GLUCOSE 113 MG/DL (70-104); MAGNESIUM 2.1 MG/DL (1.5-2.4); POTASSIUM 4.6 MMOL/L (3.5-5.1); SODIUM 135 MMOL/L (135-145); TOTAL CARBON DIOXIDE 24.8 MMOL/L (24-32); eCRCL 81 ML/MIN; eGFR 73 ML/MIN
[2024-06-21] MEDS: metoprolol tartrate 12.5mg (1/2 tablet) PO SCH (08:30)
[2024-06-21] MEDS: apixaban 5mg tablet PO SCH (08:35)
[2024-06-21] MEDS: magnesium sulf-water 2g/50mL 50 ML IV ONE (13:17)
[2024-06-22] VITALS (9 sets, daily range): BP systolic 101–126; BP diastolic 69–81; PULSE 80–99; RESP 17–19; TEMP 98.2; O2SAT 96–98
[2024-06-22 07:43] LABS: ALBUMIN 2.7 G/DL (3.4-5.0); ANION GAP 9 (8-16); BLOOD UREA NITROGEN 19 MG/DL (7-18); BUN/CREATININE RATIO 18.4 (10.0-20.0); CALCIUM 8.9 MG/DL (8.5-10.1); CHLORIDE 103 MMOL/L (99-107); CREATININE 1.03 MG/DL (0.60-1.10); GLUCOSE 109 MG/DL (70-104); POTASSIUM 4.7 MMOL/L (3.5-5.1); SODIUM 135 MMOL/L (135-145); TOTAL CARBON DIOXIDE 23.3 MMOL/L (24-32); eCRCL 80 ML/MIN; eGFR 72 ML/MIN
[2024-06-22] MEDS ORDERED: APIX5TAB3 PO (08:55)
[2024-06-22] MEDS ORDERED: AMIO200T67 PO (08:56)
[2024-06-22] MEDS: amiodarone 200mg tablet PO SCH (10:39)
[2024-06-22 12:16] LABS: ABG PO2 344.8 mmHg (83.0-108.0)
[2024-06-22 12:16] LABS: ABG PO2 372.5 mmHg (83.0-108.0)
[2024-06-22 12:17] LABS: ABG PO2 385.4 mmHg (83.0-108.0)
[2024-06-22 12:17] LABS: ABG PO2 344.2 mmHg (83.0-108.0)
== END 2024-06-22 12:22 | disposition home or self-care (01) | DRG 220 ==
LOC: PAS IN 05:33 → CICU 2S 09:38 → PCU 3S 06-18 12:24
PROVIDERS: ADMIT Thoracic Surgery (Cardiothoracic Vascular Surgery); ATTEND Thoracic Surgery (Cardiothoracic Vascular Surgery)
PROC: 5A1221Z Performance of Cardiac Output, Continuous (ICD-10-PCS; 2024-06-16)
PROC: B24BZZ4 Ultrasonography of Heart with Aorta, Transesophageal (ICD-10-PCS; 2024-06-16)
PROC: 0W9930Z Drainage of Right Pleural Cavity with Drainage Device, Percutaneous Approach (ICD-10-PCS; 2024-06-16)
PROC: 02RF08Z Replacement of Aortic Valve with Zooplastic Tissue, Open Approach (ICD-10-PCS; principal; 2024-06-16 07:41)
DX: I35.0 Nonrheumatic aortic (valve) stenosis (principal); J98.11 Atelectasis; I48.91 Unspecified atrial fibrillation; E87.79 Other fluid overload; Z85.048 Personal history of other malignant neoplasm of rectum, rectosigmoid junction, and anus; Z79.899 Other long term (current) drug therapy
CPT/HCPCS: 36415; 36600; 71045; 71046; 76376; 80048; 80053; 81001; 82330; 82435; 82803; 82947; 82948; 83036; 83735; 84100; 84132; 84295; 85018; 85025; 85347; 85610; 85730; 86885; 86900; 86901; 86920; 87081; 88300; 93005; 93312; 93325; 93880; 93970; 94002; 94010; 94668; 94760; A4615; A4618; A6258; A6449; A7000; A7048; C1751; C1758; G0378; J0171; J0282; J0690; J1100; J1644; J1815; J1885; J1940; J2060; J2150; J2250; J2270; J2370; J2405; J2704; J2919; J3370; J3475; J3480; J3490; J7030; J7040; J7050; J7120; P9045; P9047